=== PATIENT | female | born 1985 | race Caucasian/White ===

== ENCOUNTER 2023-04-26 09:45 | Inpatient (IN) | payer BC ==
[2023-04-26] MEDS ORDERED: AMPICILLIN - 2 GM in SODIUM CHLORIDE 100 ML IVPB ONE (10:30)
[2023-04-26] MEDS ORDERED: AMPICILLIN SODIUM 2 GM VIAL ONE (10:31)
[2023-04-26] MEDS ORDERED: BETAMET ACET/BETAMET NA PH 30 MG/5 ML VIAL ONE (10:43)
[2023-04-26 11:07] VITALS: BMI 31.2
[2023-04-26] MEDS ORDERED: AZITHROMYCIN IVPB 250 MG in DEXTROSE 5%-WATER - 250 ML IVPB SCH ×2 (11:15→15:00)
[2023-04-26] MEDS ORDERED: ELECTROLYTE-148 SOLN 1,000 ML IV SCH (11:15)
[2023-04-26] MEDS ORDERED: BETAMET ACET/BETAMET NA PH 30 MG/5 ML VIAL IM ONE (11:15)
[2023-04-26 11:16] LABS: BASO % 0.3 % (0-2.0); EOS % 1.2 % (0-4.5); HEMATOCRIT 32.3 % (32.4-45.2); HEMOGLOBIN 11.2 GM/dL (10.7-15.3); LYMPH % 22.4 % (8-40); MCH 28.6 pg (25.7-33.7); MCHC 34.7 g/dl (32.0-36.0); MEAN CELL VOLUME 82.7 fl (80-96); MEAN PLT VOLUME 7.6 fl (7.5-11.1); MONO % 7.4 % (3.8-10.2); NEUT % 68.7 % (42.8-82.8); PLATELET COUNT 272 10^3/uL (134-434); RBC 3.91 M/mm3 (3.60-5.2); RDW 13.5 % (11.6-15.6); WHITE BLOOD COUNT 10.7 K/mm3 (4.0-10.0)
[2023-04-26 11:22] LABS: INR 1.03 (0.83-1.09); PROTHROMBIN TIME (PATIENT) 11.9 SEC (9.7-13.0)
[2023-04-26 11:25] LABS: ACTIVATED PTT 28.3 SECONDS (25.2-36.5)
[2023-04-26 11:39] LABS: POTASSIUM 3.7 mmol/L (3.5-5.1)
[2023-04-26 11:40] LABS: CALCIUM 8.7 mg/dL (8.5-10.1)
[2023-04-26 11:41] LABS: BLOOD UREA NITROGEN 8.5 mg/dL (7-18)
[2023-04-26 11:44] LABS: CREATININE 0.4 mg/dL (0.55-1.3)
[2023-04-26] MEDS ORDERED: AZITHROMYCIN 500 MG TABLET PO ONE (12:00)
[2023-04-26] MEDS ORDERED: OXYTOCIN 20 UNITS in 0.9% NS 20 UNIT/1,000 ML INFUS.BAG IV ONE (13:03)
[2023-04-26 13:23] LABS: HIV INTERPRETATION NEGATIVE (NEGATIVE)
[2023-04-26] MEDS ORDERED: BISACODYL 10 MG SUPP.RECT RC PRN (13:59)
[2023-04-26] MEDS ORDERED: BENZOCAINE 20% 57 GM BOTTLE TP PRN (13:59)
[2023-04-26] MEDS ORDERED: METHYLERGONOVINE MALEATE 0.2 MG/1 ML AMP IM PRN (13:59)
[2023-04-26] MEDS ORDERED: WITCH HAZEL 50% (TUCKS) 40 PAD/JAR PAD TP PRN (13:59)
[2023-04-26] MEDS ORDERED: ACETAMINOPHEN 325 MG TABLET (FP) PO PRN (13:59)
[2023-04-26] MEDS ORDERED: BENZOCAINE 28 GM HEMORRHOIDAL OINTMENT TP PRN (13:59)
[2023-04-26] MEDS ORDERED: OXYTOCIN 20 UNITS in 0.9% NS 20 UNIT/1,000 ML INFUS.BAG IV SCH (14:00)
[2023-04-26 14:22] LABS: CORD BASE EXCESS -1.9 mmol/L (0-2); CORD HCO3 23.3 mmHg (20-29); CORD PCO2 41.7 mmHg (30-78); CORD pH 7.366 (7.14-7.44)
[2023-04-26 14:24] LABS: CORD BASE EXCESS -0.5 mmol/L (0-2); CORD HCO3 26.5 mmHg (20-29); CORD PCO2 52.1 mmHg (30-78); CORD pH 7.324 (7.14-7.44)
[2023-04-26] MEDS ORDERED: AMPICILLIN - 1 GM in SODIUM CHLORIDE 100 ML IVPB SCH (15:00)
[2023-04-26 15:11] VITALS: RESP 18
[2023-04-26] MEDS: IBUPROFEN 600 MG TABLET (FP) PO PRN (18:31)
[2023-04-27] MEDS: LEVOTHYROXINE NA 100 MCG TABLET (FP) PO SCH (06:13)
[2023-04-27 07:16] LABS: BASO % 0.2 % (0-2.0); HEMATOCRIT 34.1 % (32.4-45.2); HEMOGLOBIN 11.3 GM/dL (10.7-15.3); LYMPH % 15.3 % (8-40); MCH 28.2 pg (25.7-33.7); MCHC 33.2 g/dl (32.0-36.0); MEAN PLT VOLUME 8.8 fl (7.5-11.1); MONO % 5.4 % (3.8-10.2); NEUT % 79.1 % (42.8-82.8); PLATELET COUNT 315 10^3/uL (134-434); RBC 4.02 M/mm3 (3.60-5.2); WHITE BLOOD COUNT 19.7 K/mm3 (4.0-10.0)
[2023-04-27] MEDS: IBUPROFEN 600 MG TABLET (FP) PO PRN ×2 (08:51→16:27)
[2023-04-27] MEDS: PRENATAL VITAMINS W/ FOLIC ACID TABLET (FP) PO SCH (10:08)
[2023-04-27] MEDS ORDERED: SENNOSIDES/DOCUSATE COMBO (SENNA PLUS) TABLET (UD) PO PRN (22:00)
[2023-04-28] MEDS: LEVOTHYROXINE NA 100 MCG TABLET (FP) PO SCH (06:35)
[2023-04-28] MEDS: IBUPROFEN 600 MG TABLET (FP) PO PRN (08:44)
[2023-04-28] MEDS: PRENATAL VITAMINS W/ FOLIC ACID TABLET (FP) PO SCH (10:49)
[2023-04-28 10:54] VITALS: BP 106/72; PULSE 71; TEMP 98.1
== END 2023-04-28 15:30 | disposition home or self-care (01) | DRG 807 ==
LOC: JDEL 09:45 → JLDR 10:15 → J3W 15:15
PROVIDERS: ADMIT Obstetrics & Gynecology; ATTEND Obstetrics & Gynecology
PROC: 10E0XZZ Delivery of Products of Conception, External Approach (ICD-10-PCS; principal; 2023-04-26)
DX: O60.23X0 Term delivery with preterm labor, third trimester, not applicable or unspecified (principal); Z37.0 Single live birth; O42.913 Preterm premature rupture of membranes, unspecified as to length of time between rupture and onset of labor, third trimester; O99.214 Obesity complicating childbirth; O99.284 Endocrine, nutritional and metabolic diseases complicating childbirth; O24.419 Gestational diabetes mellitus in pregnancy, unspecified control; Z3A.34 34 weeks gestation of pregnancy
CPT/HCPCS: 36415; 36600; 76801-TC; 80048; 82803; 82962; 84443; 85025; 85461; 85610; 85730; 86780; 86850; 86870; 86900; 86901; 86902; 87389; 88307-TC; 96372; J2790